=== PATIENT | female | born 2000 | race Hispanic/Latino ===

== ENCOUNTER 2024-06-04 01:29 | Inpatient (IN) | payer SELFPAY ==
[~2024-06-04] VITALS: Ht 158.8 cm; Wt 69.9 kg
[2024-06-04 01:48] LABS: APPEARANCE,URINE CLEAR (CLEAR); BILIRUBIN,URINE 2 mg/dL (NEGATIVE); COLOR,URINE DARK-YELLOW (YELLOW); GLUCOSE, URINE (UA) NEGATIVE (NEGATIVE); KETONES,URINE 60 mg/dL (NEGATIVE); LEUKOCYTE ESTERASE ,URINE NEGATIVE Leu/uL (NEGATIVE); NITRATE,URINE NEGATIVE (NEGATIVE); PH,URINE 5.5 (5.0-8.0); PROTEIN,URINE 10 mg/dL (NEGATIVE); UROBILINOGEN,URINE 6 mg/dL (0.2-1.0)
[2024-06-04 01:52] LABS: ADD UA MICROSCOPIC YES
[2024-06-04 01:58] LABS: BACTERIA,URINE RARE /HPF (None Seen); MUCUS,URINE RARE LPF (None Seen); SQUAMOUS EPITHELIAL CELL,UR RARE /HPF (0-2)
[2024-06-04] MEDS ORDERED: IOHEXOL-350 75 ML VIAL IV ONE (03:49)
[2024-06-04] MEDS: LACTATED RINGERS 1000ML 1,000 ML IV ONE (03:54)
[2024-06-04] MEDS: ONDANSETRON 4MG INJ IVP ONE ×2 (03:54→08:12)
[2024-06-04 04:01] LABS: BASOPHILS # (AUTO) 0.02 K/uL (0.00-0.20); BASOPHILS % (AUTO) 0.2 % (0.0-5.0); EOSINOPHILS # (AUTO) 0.03 K/uL (0.00-0.70); EOSINOPHILS % (AUTO) 0.4 % (0.0-8.0); HEMATOCRIT 40.5 % (36-48); IMMATURE GRANULOCYTE ABSOLUTE 0.03 K/uL (0-1); LYMPHOCYTES # (AUTO) 1.8 K/uL (1.0-4.8); LYMPHOCYTES % (AUTO) 22.5 % (21.0-51.0); MEAN CORPUSCULAR HEMOGLOBIN 27.4 pg (27.0-33.0); MEAN CORPUSCULAR HGB CONC 32.1 g/dL (32.0-36.0); MEAN CORPUSCULAR VOLUME 85.4 fL (80-100); MONOCYTES # (AUTO) 0.9 K/uL (0.1-1.0); MONOCYTES % (AUTO) 10.7 % (3.0-13.0); NEUTROPHILS # (AUTO) 5.3 K/uL (1.8-7.7); NEUTROPHILS % (AUTO) 65.8 % (40.0-77.0); PLATELET COUNT (AUTO) 321 K/uL (130-400); RED BLOOD CELL COUNT(AUTO) 4.74 MIL/uL (4.00-5.50); RED CELL DISTRIBUTION WIDTH 13.9 % (11.0-15.5)
[2024-06-04 04:10] LABS: POTASSIUM 3.4 mmol/L (3.5-5.1)
[2024-06-04 04:27] LABS: ALBUMIN 3.8 g/dL (3.5-5.0); BILIRUBIN,TOTAL 3.6 mg/dL (0.2-1.0); TOTAL PROTEIN, SERUM 8.8 g/dL (6.0-8.3)
[2024-06-04] MEDS ORDERED: ACETAMINOPHEN 325 MG TAB PO PRN (08:00)
[2024-06-04] MEDS: LACTATED RINGERS 1000ML 1,000 ML IV SCH (08:12)
[2024-06-04] MEDS: FAMOTIDINE 20MG VIAL IV SCH (08:12)
[2024-06-04] MEDS: MORPHINE 2 MG SYG IVP ONE (08:12)
[2024-06-04] MEDS: ZOSYN 3.375GM +NS 50ML IV SCH (08:13)
[2024-06-04] MEDS ORDERED: POTASSIUM CHLORIDE 20MEQ/100ML 100 ML IV PRN (09:30)
[2024-06-04 10:30] VITALS: BP 143/84; PULSE 69; RESP 20
[2024-06-04 12:00] VITALS: BP 122/84; PULSE 88; RESP 20
[2024-06-04] MEDS: MORPHINE 4 MG SYG IVP PRN (14:36)
[2024-06-04 15:50] VITALS: BP 119/70; PULSE 69; RESP 18
[2024-06-04 19:20] VITALS: BP 140/70; PULSE 66; RESP 20; O2SAT 100
[2024-06-05] VITALS (8 sets, daily range): BP systolic 109–129; BP diastolic 60–77; PULSE 53–64; RESP 20–21; O2SAT 100
[2024-06-05] MEDS: POTASSIUM CHLORIDE 10% ELIXIR 20 MEQ/15 ML UDCUP PO PRN (02:04)
[2024-06-05 09:45] LABS: BASOPHILS # (AUTO) 0.02 K/uL (0.00-0.20); BASOPHILS % (AUTO) 0.3 % (0.0-5.0); EOSINOPHILS # (AUTO) 0.07 K/uL (0.00-0.70); EOSINOPHILS % (AUTO) 1.2 % (0.0-8.0); HEMATOCRIT 33.4 % (36-48); IMMATURE GRANULOCYTE ABSOLUTE 0.01 K/uL (0-1); LYMPHOCYTES # (AUTO) 2.2 K/uL (1.0-4.8); LYMPHOCYTES % (AUTO) 35.9 % (21.0-51.0); MEAN CORPUSCULAR HEMOGLOBIN 27.6 pg (27.0-33.0); MEAN CORPUSCULAR VOLUME 86.3 fL (80-100); MONOCYTES # (AUTO) 0.7 K/uL (0.1-1.0); MONOCYTES % (AUTO) 11.1 % (3.0-13.0); NEUTROPHILS # (AUTO) 3.1 K/uL (1.8-7.7); NEUTROPHILS % (AUTO) 51.3 % (40.0-77.0); PLATELET COUNT (AUTO) 282 K/uL (130-400); RED BLOOD CELL COUNT(AUTO) 3.87 MIL/uL (4.00-5.50); RED CELL DISTRIBUTION WIDTH 14.3 % (11.0-15.5)
[2024-06-05 09:48] LABS: CREATININE 0.9 mg/dL (0.5-1.0)
[2024-06-05 09:53] LABS: BILIRUBIN,TOTAL 1.4 mg/dL (0.2-1.0); TOTAL PROTEIN, SERUM 7.2 g/dL (6.0-8.3)
[2024-06-05] MEDS: ONDANSETRON 4MG INJ IVP PRN (11:14)
[2024-06-06] VITALS (26 sets, daily range): BP systolic 116–141; BP diastolic 57–88; PULSE 52–86; RESP 14–18; O2SAT 98–99
[2024-06-06 10:02] LABS: BASOPHILS # (AUTO) 0.02 K/uL (0.00-0.20); BASOPHILS % (AUTO) 0.3 % (0.0-5.0); EOSINOPHILS # (AUTO) 0.08 K/uL (0.00-0.70); EOSINOPHILS % (AUTO) 1.4 % (0.0-8.0); HEMATOCRIT 31.8 % (36-48); IMMATURE GRANULOCYTE ABSOLUTE 0.01 K/uL (0-1); LYMPHOCYTES # (AUTO) 2.1 K/uL (1.0-4.8); LYMPHOCYTES % (AUTO) 36.1 % (21.0-51.0); MEAN CORPUSCULAR HEMOGLOBIN 28.1 pg (27.0-33.0); MEAN CORPUSCULAR HGB CONC 32.7 g/dL (32.0-36.0); MEAN CORPUSCULAR VOLUME 85.9 fL (80-100); MONOCYTES # (AUTO) 0.6 K/uL (0.1-1.0); MONOCYTES % (AUTO) 10.1 % (3.0-13.0); NEUTROPHILS % (AUTO) 51.9 % (40.0-77.0); PLATELET COUNT (AUTO) 247 K/uL (130-400); RED CELL DISTRIBUTION WIDTH 13.5 % (11.0-15.5); WHITE BLOOD COUNT (AUTO) 5.9 K/uL (4.8-10.8)
[2024-06-06 10:16] LABS: ALBUMIN 2.8 g/dL (3.5-5.0); BILIRUBIN,TOTAL 1.2 mg/dL (0.2-1.0); CREATININE 0.8 mg/dL (0.5-1.0); POTASSIUM 3.6 mmol/L (3.5-5.1); TOTAL PROTEIN, SERUM 7.2 g/dL (6.0-8.3)
[2024-06-06] MEDS ORDERED: PROPOFOL 10 MG/ML 20ML VIAL IV ONE (11:03)
[2024-06-06] MEDS ORDERED: MIDAZOLAM HCL 1 MG/ML 2ML VIAL ONE (11:03)
[2024-06-06] MEDS ORDERED: FENTANYL CITRATE PF 50 MCG/1 ML 2ML VIAL ONE ×2 (11:05→12:13)
[2024-06-06] MEDS: INDOCYANINE GREEN 25 MG VIAL IJ ONE (11:05)
[2024-06-06] MEDS ORDERED: ROCURONIUM BROMIDE 10MG/1ML 5ML VL ONE (11:12)
[2024-06-06] MEDS ORDERED: ONDANSETRON 4MG INJ ONE (11:26)
[2024-06-06] MEDS ORDERED: DEXAMETHASONE SOD PHOSPHATE 10MG/ML 1ML VIAL ONE (11:49)
[2024-06-06] MEDS: BUPIVACAINE/PF 0.25% 30ML VIAL IJ ONE (11:56)
[2024-06-06] MEDS ORDERED: METOCLOPRAMIDE 10 MG/2 ML VIAL ONE (12:10)
[2024-06-06] MEDS ORDERED: NEOSTIGMINE METHYLSULFATE 1MG/ML IV ONE (12:11)
[2024-06-06] MEDS ORDERED: GLYCOPYRROLATE 0.2 MG/ML 5 ML VIAL ONE (12:11)
[2024-06-06] MEDS: KETOROLAC 30MG VIAL (30MG/ML) ONE (12:45)
[2024-06-06] MEDS: ONDANSETRON 4MG INJ ONE (12:46)
[2024-06-06] MEDS: MEPERIDINE-PF 25 MG/ML SYG ONE (12:46)
[2024-06-06] MEDS: IBUPROFEN 800 MG TAB PO SCH (15:12)
[2024-06-06] MEDS: SIMETHICONE 80 MG TAB.CHEW PO SCH (20:37)
[2024-06-07] VITALS (8 sets, daily range): BP systolic 115–147; BP diastolic 74–96; PULSE 55–93; RESP 13–18; O2SAT 98
[2024-06-07] MEDS: TRAMADOL HCL 50 MG TABLET PO PRN (02:02)
[2024-06-07 06:12] LABS: BASOPHILS # (AUTO) 0.02 K/uL (0.00-0.20); BASOPHILS % (AUTO) 0.2 % (0.0-5.0); EOSINOPHILS # (AUTO) 0.02 K/uL (0.00-0.70); EOSINOPHILS % (AUTO) 0.2 % (0.0-8.0); HEMATOCRIT 34.2 % (36-48); IMMATURE GRANULOCYTE ABSOLUTE 0.03 K/uL (0-1); LYMPHOCYTES # (AUTO) 1.4 K/uL (1.0-4.8); LYMPHOCYTES % (AUTO) 16.9 % (21.0-51.0); MEAN CORPUSCULAR HEMOGLOBIN 27.1 pg (27.0-33.0); MEAN CORPUSCULAR HGB CONC 32.2 g/dL (32.0-36.0); MEAN CORPUSCULAR VOLUME 84.2 fL (80-100); MONOCYTES # (AUTO) 0.8 K/uL (0.1-1.0); MONOCYTES % (AUTO) 9.5 % (3.0-13.0); NEUTROPHILS # (AUTO) 5.8 K/uL (1.8-7.7); NEUTROPHILS % (AUTO) 72.8 % (40.0-77.0); PLATELET COUNT (AUTO) 292 K/uL (130-400); RED BLOOD CELL COUNT(AUTO) 4.06 MIL/uL (4.00-5.50); RED CELL DISTRIBUTION WIDTH 13.6 % (11.0-15.5)
[2024-06-07 07:19] LABS: ALBUMIN 3.1 g/dL (3.5-5.0); BILIRUBIN,TOTAL 3.1 mg/dL (0.2-1.0); CREATININE 0.7 mg/dL (0.5-1.0); POTASSIUM 3.7 mmol/L (3.5-5.1); TOTAL PROTEIN, SERUM 7.8 g/dL (6.0-8.3)
[2024-06-07] MEDS: MORPHINE 4 MG SYG IVP PRN (08:54)
[2024-06-08] VITALS: BP 115/75; PULSE 67; RESP 20
[2024-06-08 03:00] VITALS: BP 133/85; PULSE 74; RESP 14
[2024-06-08 04:19] LABS: ALBUMIN 3.3 g/dL (3.5-5.0); BILIRUBIN,TOTAL 3.9 mg/dL (0.2-1.0); CREATININE 0.6 mg/dL (0.5-1.0); POTASSIUM 3.9 mmol/L (3.5-5.1); TOTAL PROTEIN, SERUM 8.4 g/dL (6.0-8.3)
[2024-06-08 08:00] VITALS: BP 118/63; PULSE 69; RESP 14; O2SAT 98
[2024-06-08 08:41] LABS: BASOPHILS # (AUTO) 0.02 K/uL (0.00-0.20); BASOPHILS % (AUTO) 0.3 % (0.0-5.0); EOSINOPHILS # (AUTO) 0.03 K/uL (0.00-0.70); EOSINOPHILS % (AUTO) 0.4 % (0.0-8.0); HEMATOCRIT 37.5 % (36-48); IMMATURE GRANULOCYTE ABSOLUTE 0.02 K/uL (0-1); MEAN CORPUSCULAR HEMOGLOBIN 27.5 pg (27.0-33.0); MEAN CORPUSCULAR HGB CONC 31.5 g/dL (32.0-36.0); MEAN CORPUSCULAR VOLUME 87.4 fL (80-100); MONOCYTES # (AUTO) 0.6 K/uL (0.1-1.0); MONOCYTES % (AUTO) 8.5 % (3.0-13.0); NEUTROPHILS # (AUTO) 5.4 K/uL (1.8-7.7); NEUTROPHILS % (AUTO) 76.5 % (40.0-77.0); PLATELET COUNT (AUTO) 333 K/uL (130-400); RED BLOOD CELL COUNT(AUTO) 4.29 MIL/uL (4.00-5.50); RED CELL DISTRIBUTION WIDTH 14.3 % (11.0-15.5); WHITE BLOOD COUNT (AUTO) 7.1 K/uL (4.8-10.8)
[2024-06-08 11:53] VITALS: BP 126/84; PULSE 65; RESP 14
[2024-06-08 16:00] VITALS: BP 123/74; PULSE 55; RESP 14
[2024-06-08 20:00] VITALS: BP 115/75; PULSE 67; RESP 20; O2SAT 98
[2024-06-09] VITALS: BP 127/61; PULSE 52; RESP 20
[2024-06-09 03:54] LABS: ALBUMIN 3.2 g/dL (3.5-5.0); BILIRUBIN,TOTAL 1.6 mg/dL (0.2-1.0); CREATININE 0.7 mg/dL (0.5-1.0); POTASSIUM 3.3 mmol/L (3.5-5.1); TOTAL PROTEIN, SERUM 7.9 g/dL (6.0-8.3)
[2024-06-09 04:00] VITALS: BP 135/70; PULSE 53; RESP 20
[2024-06-09 07:20] VITALS: BP 115/68; PULSE 60; RESP 20
[2024-06-09 08:00] VITALS: O2SAT 98
[2024-06-09 11:20] VITALS: BP 122/78; PULSE 66; RESP 20
[2024-06-09] MEDS: KCL 20 MEQ ERTAB PO PRN (12:48)
[2024-06-09 15:20] VITALS: BP 136/81; PULSE 90; RESP 20
== END 2024-06-09 19:01 | disposition home or self-care (01) | DRG 419 ==
LOC: EDH 01:29 → EDHIP 01:30 → WSH 10:25 → 4AH 06-06 13:20
PROVIDERS: ADMIT Internal Medicine; ATTEND Internal Medicine
PROC: 8E0W4CZ Robotic Assisted Procedure of Trunk Region, Percutaneous Endoscopic Approach (ICD-10-PCS; 2024-06-06)
PROC: 0FT44ZZ Resection of Gallbladder, Percutaneous Endoscopic Approach (ICD-10-PCS; principal; 2024-06-06 11:09)
DX: K80.01 Calculus of gallbladder with acute cholecystitis with obstruction (principal); E87.6 Hypokalemia; K59.00 Constipation, unspecified; Z79.899 Other long term (current) drug therapy
CPT/HCPCS: 36415; 74177; 74181; 76705; 80053; 81001; 81025; 82150; 82550; 83690; 84132; 85025; 87040; 87086; G0378; J1100; J1885; J2175; J2250; J2270; J2405; J2543; J2704; J2710; J2765; J3010; J3490; J7030; J7120; Q9967; A4216; A4222; A4223; A4600; A4649; C1769; G0168; J0665; S8037

== ENCOUNTER 2024-06-23 09:50 | Emergency (ER) | payer SELFPAY ==
[~2024-06-23] VITALS: Ht 157.5 cm; Wt 69.9 kg
[2024-06-23 09:52] VITALS: BP 132/85; PULSE 61; RESP 16
== END 2024-06-23 11:52 | disposition home or self-care (01) ==
LOC: EDH 09:50
DX: Z48.815 Encounter for surgical aftercare following surgery on the digestive system (principal); Z90.49 Acquired absence of other specified parts of digestive tract
CPT/HCPCS: 99282